=== PATIENT | female | born 1965 ===

== ENCOUNTER 2024-11-11 13:22 | Emergency (ER) | payer OTHER, SELFPAY ==
--- NOTE | ~2024-11-11 | CT_ITS ---
EXAMINATION: CT ABDOMEN AND PELVIS WITH CONTRAST CLINICAL INFORMATION: Abdominal pain COMPARISON: None available. TECHNIQUE: Multidetector volumetric images were obtained from the superior aspect of the liver through the pubic symphysis following administration 85 mL of Omnipaque 350 intravenous contrast. Sagittal and coronal reformatted images were obtained on the technologist's workstation. Oral contrast: No This CT examination was performed using dose optimization techniques as appropriate, variously including the following: *Automated exposure control *Adjustment of mA and/or kV according to patient size (this includes techniques or standardized protocols for targeted exams where dose is matched to indication/reason for exam; i.e. extremities or head) *Use of iterative reconstruction technique DLP: 936. mGy-cm FINDINGS: LUNG BASES: The visualized lung bases are unremarkable. LIVER, GALLBLADDER, AND BILIARY TREE: The liver is normal in size, shape, and attenuation. No focal hepatic lesion or biliary ductal dilatation is present. Status post cholecystectomy. PANCREAS: Fatty infiltration and somewhat atrophic appearing pancreas SPLEEN: Unremarkable. ADRENAL GLANDS: Unremarkable. KIDNEYS AND URETERS: The kidneys are normal in size, shape, and attenuation. No hydronephrosis, hydroureter, or calculi seen. No perinephric stranding. BLADDER: Unremarkable. GASTROINTESTINAL TRACT: Appendix not clearly visualized. No inflammatory changes in the right lower quadrant. Large bowel: Unremarkable. Small bowel unremarkable. STOMACH: Unremarkable ABDOMINAL WALL: No significant hernia is appreciated. LYMPH NODES: Normal. VASCULAR: Mild calcific atherosclerotic disease PELVIC VISCERA: Unremarkable. OSSEOUS STRUCTURES: Multilevel spondylosis of lumbosacral spine with severe facet arthrosis from L3-L4 through L5-S1 There is grade 1 anterolisthesis at L3-L4 Grade 1 retrolisthesis of L1 on L2 CT/CT abdomen pelvis w IV con IMPRESSION: 1. No acute abnormality. 2. Status post cholecystectomy. 3. Fatty infiltration and atrophic appearing pancreas. 4. Mild calcific atherosclerotic disease. Multilevel spondylosis of lumbosacral spine Fleischner guidelines were followed. Electronically signed by: Garret Sanches MD 11/11/2024 05:07 PM [facility]
--- NOTE | ~2024-11-11 | CT_ITS ---
EXAMINATION: CT CERVICAL SPINE CLINICAL INFORMATION: neck pain fall COMPARISON: No prior CT available, TECHNIQUE: Computed axial sagittal and coronal images acquired using department's standard protocol. This CT examination was performed using dose optimization techniques as appropriate, variously including the following: *Automated exposure control *Adjustment of mA and/or kV according to patient size (this includes techniques or standardized protocols for targeted exams where dose is matched to indication/reason for exam; i.e. extremities or head) *Use of iterative reconstruction technique CONTRAST: None DLP: 1060 mGy-cm FINDINGS: SKULL BASE: Visualized structures at skull base are normal, Included facial sinuses are clear, CERVICAL VERTEBRAE: Plate and multiple screws anterior fusion of C4, C5, C6 and C7, otherwise the vertebral bodies are completely fused at these levels Seven cervical vertebrae identified maintaining proper height and alignment, ATLANTOAXIAL AND ATLANTOOCCIPITAL ARTICULATION: Included occipital condyle are properly articulating with C1, measuring of C1 is intact. Proper articulation of the odontoid process with C1. POSTERIOR SPINES and lateral transverse processes: All are intact. DISCS: Narrowing of intervertebral disc spaces and developed small osteophyte from the edges of endplates encroaching on the neural foramen bilaterally at multiple levels. PREVERTEBRAL SOFT TISSUE: Within normal limits, no evidence of prevertebral soft tissue swelling. Visualized portion of the trachea larynx are normal. LUNG APICES: Included lung apices are clear bilaterally. Paravertebral soft tissue including LYMPH NODE AND SALIVARY GLANDS THYROID: Paravertebral soft tissue including cervical lymph nodes are within normal limits. Included paranasal and salivary unremarkable. CT/CT cervical spine wo IV con IMPRESSION: 1. No CT evidence of cervical spine fracture. 2. Narrowing of intervertebral disc spaces and developed small osteophyte from the edges of endplates encroaching on the neural foramen bilaterally at multiple levels. 3. Anterior fusion of C4, C5, C6 and C7, otherwise the vertebral bodies are completely fused at these levels. Electronically signed by: Coco Radford MD 11/11/2024 03:17 PM [facility]
--- NOTE | ~2024-11-11 | CT_ITS ---
CT HEAD WITHOUT IV CONTRAST CLINICAL INFORMATION: fall headstrike COMPARISON: No prior CT scan available for comparison. TECHNIQUE: Department standard protocol. This CT examination was performed using dose optimization techniques as appropriate, variously including the following: *Automated exposure control *Adjustment of mA and/or kV according to patient size (this includes techniques or standardized protocols for targeted exams where dose is matched to indication/reason for exam; i.e. extremities or head) *Use of iterative reconstruction technique DLP: 1060 mGy-cm FINDINGS: CEREBRAL HEMISPHERES: There is no evidence of intra-axial or extra-axial mass, hemorrhage or acute infarct. BRAIN PARENCHYMA: Normal corrigan-white matter differentiation. SUBDURAL SPACE: No bleed. BASAL GANGLIA AND PINEAL GLAND: Unremarkable VENTRICLES: Symmetric and normal in size. CEREBELLUM AND BRAINSTEM: No space-occupying mass, hemorrhage or acute infarct. CEREBELLOPONTINE ANGLES: No lesion found. ORBITS: No intraorbital mass. VESSELS: Unremarkable SKULL BASE: Unremarkable INCLUDED SINUSES AT SKULL BASE: Clear SKULL AND SKIN: No fracture or bone lesion found. CT/CT head/brain wo IV con IMPRESSION: No CT evidence of intracranial space-occupying mass, bleed or infarct. Electronically signed by: Coco Radford MD 11/11/2024 03:20 PM [facility]
--- NOTE | ~2024-11-11 | XR_ITS ---
EXAMINATION: XR CHEST 1 VIEW CLINICAL INFORMATION: cp COMPARISON: None TECHNIQUE: Single portable frontal view. Tubes and lines: None Lungs and pleura: Both lungs are clear. Heart and mediastinum: The mediastinum is within normal limits.. Bones/soft tissue: Skeletal structures included are normal for patient's age. XR/XR chest 1V IMPRESSION: No radiographic evidence of acute cardiopulmonary disease. Electronically signed by: Coco Radford MD 11/11/2024 02:49 PM [facility]
[2024-11-11 13:26] VITALS: BP 110/71; PULSE 70; O2SAT 100
--- NOTE | 2024-11-11 13:34 | ECG_ITS ---
Test Reason : SYNCOPE Blood Pressure : / mmHG Vent. Rate : 063 BPM Atrial Rate : 063 BPM P-R Int : 146 ms QRS Dur : 078 ms QT Int : 424 ms P-R-T Axes : 029 032 029 degrees QTc Int : 433 ms Normal sinus rhythm Low voltage QRS Cannot rule out Anterior infarct , age undetermined Abnormal ECG No previous ECGs available Referred By: Melanie Sharpe Electronically Signed By:LIGIA HAMILTON
--- NOTE | 2024-11-11 13:36 | ED_ITS ---
HPI - General Adult General Chief complaint: Syncope Stated complaint: PASSED OUT, DIZZY, NAUSEA,SMOKED WEED EARLIER Time Seen by Provider: 11/11/24 13:33 Source: patient and EMS Mode of arrival: EMS Limitations: no limitations History of Present Illness ED Provider: JOSÉ LUIS Sharpe HPI narrative: 59 year old female hx of marijuana use, presents after being found outside slumped over on a chair, unclear if LOC. Reports she was out taking a walk and suddenly felt unwell. Patient now reporting feeling tired, overall unwell and having a diffuse headache w/ substernal chest pressure. When EMS found her she was sweaty and appeared unwell. Patient poor historian and not providing much of a history. Right now diffuse headache w/o vision changes, dizziness, weakness. Denies falls or trauma. Also denies recent illness, cough, shortness of breath, n/v/d, abd pain Related Data Allergies Allergy/AdvReac Type Severity Reaction Status Date / Time codeine Allergy Unknown Verified 11/11/24 13:57 morphine Allergy Unknown Verified 11/11/24 13:57 Review of Systems 2 Review of Systems: Yes all other systems are reviewed and are negative FOR[facility]LY [facility] Past Medical History Attestation statement: The following information was validated with the patient. Source: old records reviewed and nursing notes reviewed Social History Social History Smoked in Last 30 Days: Yes Use of substances other than those prescribed or required for medical reasons: Yes Substance Use Type: Marijuana Advance Directives: No Advance Directives Information Provided: Yes Patient : No Physical Exam ED Vital Signs: Vital Signs - 24 hr 11/11/24 13:39 11/11/24 14:03 Pulse Rate 64 Respiratory Rate 16 Blood Pressure 119/69 Pulse Oximetry 99 99 Oxygen Delivery Method Room Air Room Air BMI result Body Mass Index 33.5 vss Appearance: Alert.? Oriented X3.? No acute distress.? Head: Normocephalic, atraumatic, no step-offs or deformities Eyes: Pupils equal, round and reactive to light.? CVS: Normal heart rate and rhythm.? Pulses normal.? Respiratory: No respiratory distress.? Breath sounds normal.? Abdomen: Soft and nontender.? Skin: Skin warm and dry.? Normal skin color.? Normal skin turgor.? Extremities: No lower extremity edema.? No calf ttp. 5/5 strength to bilateral upper and lower extremities Back: No midline tenderness, no C-spine tenderness, full range of motion, no CVA tenderness bilaterally Neuro: Oriented X 3.? No motor deficit.? No sensory deficit. CN 2-12 intact Course Reevaluation(s) Reevaluation #1: CBC unremarkable. Chemistry no acute findings needing intervention. Troponin negative, EKG nonischemic. BNP normal. Albumin normal CT cervical spine no CT evidence of cervical spine fractures narrowing of intervertebral disc spaces and developing small osteophytes in the edges of the endplates encroaching on the neural foraminal bilaterally at multiple levels anterior fusion of C4, 5, 6, 7 otherwise the vertebral bodies or completely fused at these levels. CT head no evidence of intracranial space-occupying mass, bleed or infarct. Chest x-ray no radiographic evidence of acute cardiopulmonary disease. Plan CT abdomen still pending, repeat troponin pending. To note CT abdomen was added as patient reports intermittent discomfort diffusely patient reports she was recently hospitalized for inability to pass stool. Sign out to Bee Time: 15:36 Medical Decision Making Medical Decision Making [facility] Narrative: 1340 59-year-old female presents status post being found slumped over in a chair outside. Prior to this she was taking walk. Now reporting headache, chest pain Physical exam benign NIH stroke scale 0 History and physical exam concerning for chest pain versus ACS versus unstable angina versus near-syncope versus syncope. Unlikely intracranial hemorrhage, stroke, posterior stroke, meningitis, encephalitis, dissection, acute respiratory distress. Will rule out metabolic derangements. No signs of fracture, dislocations or trauma to head, neck, chest, abdomen and pelvis. Will rule out dysrhythmia. Plan labs, imaging, urine Differential Diagnosis Differential Diagnoses: The differential diagnosis associated with the presentation includes (History and physical exam concerning for chest pain versus ACS versus unstable angina versus near-syncope versus syncope. Unlikely intracranial hemorrhage, stroke, posterior stroke, meningitis, encephalitis, dissection, acute respiratory distress. Will rule out metabolic derangements. No signs of) Admission/Observation Consideration of admission/observation: Escalation of care including admission/observation considered Lab Data [facility] Lab Attestation statement: I reviewed the patient's lab results. 11/11/24 14:48 11/11/24 14:48 Labs: Lab Results 11/11/24 Range/Units 14:48 WBC 7.9 (4.8-10.8) X10*3/uL RBC 5.17 (4.20-5.50) X10*6/uL Hgb 13.2 (12.0-16.0) g/dl Hct 41.1 (37.0-47.0) % MCV 79.5 L (80.0-98.0) fL MCH 25.5 L (27.0-33.0) pg MCHC 32.1 (31.0-35.0) g/dl RDW 14.8 (11.0-16.0) % Plt Count 227 (160-400) X10*3/uL MPV 9.9 (9.4-12.3) fL Immature Gran % (Auto) 0.3 (0.0-0.4) % Neut % (Auto) 64.0 (45-73) % Lymph % (Auto) 22.6 (20-40) % Pinal % (Auto) 6.2 (2-11) % Eos % (Auto) 6.3 H (0-4) % Baso % (Auto) 0.6 (0-2) % Lymph # (Auto) 1.8 (1.2-4.9) X10*3/uL Pinal # (Auto) 0.5 (0.1-1.2) X10*3/uL Eos # (Auto) 0.5 H (0.0-0.4) X10*3/uL Baso # (Auto) 0.1 (0.0-0.2) X10*3/uL Abs Immat Gran (auto) 0.02 (0.00-0.03) X10*3/uL Absolute Neuts (auto) 5.1 (2.0-8.3) x10*3/uL Absolute Nucleated RBC 0.000 (0.0-0.012) X10*3/uL Nucleated RBC % (auto) 0.0 (0.0-0.2) /100WBC PT 10.5 L (10.9-12.4) SEC INR 0.9 (0.9-1.1) Sodium 140 (135-145) mmol/L Potassium 4.6 (3.3-5.1) mmol/L Chloride 108 (96-108) mmol/L Carbon Dioxide 26 (22-29) mmol/L Anion Gap 11 L (12-20) BUN 15 (9-16) mg/dL Creatinine 0.74 (0.5-1.4) mg/dL Estim Creat Clear Calc 90.3 Estimated GFR > 60 Random Glucose 105 (60-115) mg/dL Calcium 8.7 (8.4-10.2) mg/dL Magnesium 2.1 (1.6-2.6) mg/dL Total Bilirubin 0.2 (0.0-1.0) mg/dL AST 19 (5-31) U/L ALT 10 (0-31) U/L Alkaline Phosphatase 78 (39-117) U/L Troponin I High Sens < 2.7 (<3.5-17.0) ng/L B-Natriuretic Peptide 39 (<100) pg/mL Total Protein 6.4 L (6.5-8.0) g/dL Albumin 3.9 (3.5-5.0) g/dL Salicylates < 5.0 L (15-30) mg/dL Acetaminophen < 3 (<30) mcg/mL Ethyl Alcohol < 10 mg/dL Independent Interpretation I performed an independent interpretation of an: EKG (Normal sinus rhythm Low voltage QRS Cannot rule out Anterior infarct , age undetermined Abnormal ECG No previous ECGs available ), Plain X-Ray (XR/XR chest 1V IMPRESSION: No radiographic evidence of acute cardiopulmonary disease.) and CT Scan (CT/CT cervical spine wo IV con IMPRESSION: 1. No CT evidence of cervical spine fracture. 2. Narrowing of intervertebral disc spaces and developed small osteophyte from the edges of endplates encroaching on the neural foramen bilaterally at multiple levels. 3. Anterior fusion of C4, C5, C6) Interpretation: CT/CT head/brain wo IV con IMPRESSION: No CT evidence of intracranial space-occupying mass, bleed or infarct. Radiology Impression Discussion of test interpretation with radiology: I have reviewed the radiologist's reading. Independent Historian Clinical information obtained from an independent historian. History obtained from or confirmed by: Friend Chronic Conditions Patient?s care impacted by: Other (see hpi ) Discharge Plan Discharge Clinical Impression: Near syncope, Chest pain Patient Disposition: Still a Patient Print Language: Bahraini
[2024-11-11 13:39] VITALS: BP 119/69; PULSE 64; RESP 16; O2SAT 99; BMI 33.5
[2024-11-11 14:03] VITALS: O2SAT 99
--- NOTE | 2024-11-11 14:03 | PC.NURSE ---
Pt also reports headache left sided, CT to scan this pt next
[2024-11-11 14:53] LABS: MANUAL DIFF FLAG NO
[2024-11-11 14:55] LABS: Basophils Absolute Auto 0.1 X10*3/uL (0.0-0.2); Basophils Percent Auto 0.6 % (0-2); Eosinophils Absolute Auto 0.5 X10*3/uL (0.0-0.4); Eosinophils Percent Auto 6.3 % (0-4); Hematocrit 41.1 % (37.0-47.0); Hemoglobin 13.2 g/dl (12.0-16.0); Imm Gran Abs Auto 0.02 X10*3/uL (0.00-0.03); Imm Gran Pct Auto 0.3 % (0.0-0.4); Lymphocytes Absolute Auto 1.8 X10*3/uL (1.2-4.9); Lymphocytes Percent Auto 22.6 % (20-40); Mean Corpuscular HGB Conc 32.1 g/dl (31.0-35.0); Mean Corpuscular Hemoglobin 25.5 pg (27.0-33.0); Mean Corpuscular Volume 79.5 fL (80.0-98.0); Mean Platelet Volume 9.9 fL (9.4-12.3); Monocytes Absolute Auto 0.5 X10*3/uL (0.1-1.2); Monocytes Percent Auto 6.2 % (2-11); Neutrophils Absolute Auto 5.1 x10*3/uL (2.0-8.3); Platelet Count 227 X10*3/uL (160-400); Red Blood Count 5.17 X10*6/uL (4.20-5.50); Red Cell Distribution Width 14.8 % (11.0-16.0); White Blood Count 7.9 X10*3/uL (4.8-10.8)
[2024-11-11 14:59] LABS: INTERNATIONAL NORM RATIO 0.9 (0.9-1.1); Prothrombin Time 10.5 SEC (10.9-12.4)
[2024-11-11 15:12] LABS: Acetaminophen LAB < 3 mcg/mL (<30); Salicylate < 5.0 mg/dL (15-30)
[2024-11-11 15:14] LABS: Alanine Aminotransferase 10 U/L (0-31); Albumin Level 3.9 g/dL (3.5-5.0); Alkaline Phosphatase 78 U/L (39-117); Anion Gap 11 (12-20); Aspartate Amino Transferase 19 U/L (5-31); Bilirubin Total 0.2 mg/dL (0.0-1.0); Blood Urea Nitrogen 15 mg/dL (9-16); Calcium 8.7 mg/dL (8.4-10.2); Carbon Dioxide 26 mmol/L (22-29); Chloride 108 mmol/L (96-108); Creatinine Clr Calc Pharmacy 90.3; Estimated Glomerular Filt Rate > 60; Ethanol < 10 mg/dL; Glucose Random 105 mg/dL (60-115); Magnesium 2.1 mg/dL (1.6-2.6); Potassium 4.6 mmol/L (3.3-5.1); Sodium 140 mmol/L (135-145); Total Protein 6.4 g/dL (6.5-8.0)
[2024-11-11 15:22] LABS: Troponin-I High Sensitivity < 2.7 ng/L (<3.5-17.0)
[2024-11-11 15:24] LABS: B Type Natriuretic Peptide 39 pg/mL (<100)
[2024-11-11] MEDS: Ketorolac Tromethamine 15 MG/ML VIAL IVPUSH (16:07)
[2024-11-11 16:20] VITALS: BP 101/71; BP 102/68; PULSE 61; PULSE 62
[2024-11-11 16:21] VITALS: BP 105/73; PULSE 67
[2024-11-11] MEDS: iohexoL 350 MG/ML 100 ML INFUS..BTL IV (16:42)
[2024-11-11 16:55] LABS: Appearance Urine Clear; Color Urine Yellow; Glucose Urine UA Negative (Negative); Leukocyte Esterase Urine Negative (Negative); Nitrite Urine Negative (Negative); Urine Blood Negative (Negative); Urine Ketones Negative (Negative); Urine Protein Negative (Neg-Trace)
[2024-11-11 18:03] VITALS: BP 105/73; PULSE 67; RESP 18; TEMP 37; O2SAT 98
== END 2024-11-11 18:04 | disposition home or self-care (01) ==
PROVIDERS: Physician Assistant; Emergency Provider Emergency Medicine
DX: R55 Syncope and collapse (principal); R07.89 Other chest pain; R06.02 Shortness of breath; R51.9 Headache, unspecified; M54.2 Cervicalgia; R10.2 Pelvic and perineal pain; Z51.81 Encounter for therapeutic drug level monitoring; Z79.899 Other long term (current) drug therapy
CPT/HCPCS: 36415; 70450; 71045; 72125; 74177; 80053; 80143; 80179; 80307; 81003; 83735; 83880; 84484; 85025; 85610; 93005; 99285; J1885; Q9967

== ENCOUNTER → 2024-11-11 13:34 | Outpatient (BNV) | payer OTHER, SELFPAY | PROVIDERS: Emergency Provider Emergency Medicine; Visit Provider Internal Medicine | DX: R94.31 Abnormal electrocardiogram [ECG] [EKG] (principal) | CPT/HCPCS: 93010 ==